=== PATIENT | female | born 1940 | race Caucasian/White ===

== ENCOUNTER 2017-08-14 12:09 | Day surgery (SDC) | payer OTHER ==
[2017-08-14] VITALS (9 sets, daily range): BP systolic 125–157; BP diastolic 84–116; PULSE 85–148; RESP 16–20; TEMP 98.3–98.6; O2SAT 94–99
[~2017-08-14] VITALS: Ht 160 cm; Wt 51.8 kg
[~2017-08-14 12:09] MED LIST: AMLO5TAB96 PO; LEVO50TA51 PO; METO10TA PO; MOXI400T4 PO; OMEP20CA5 PO; PHENYLEPH/NS 1000 MCG/10 ML SYR IV ONE; PROPOFOL 200 MG/20 ML AMP IV ONE; PROZ20CA11 PO
[2017-08-14] MEDS ORDERED: MUPIROCIN 2% OINT 1 APPLIC/GM SYR NASAL SCH (12:45)
[2017-08-14] MEDS ORDERED: CHLORHEXIDINE GLUCONATE 2 % 1 PACK (2 CLOTHS) TOPICAL SCH (12:45)
[2017-08-14] MEDS ORDERED: NS 1000 ML IV SCH (12:45)
[2017-08-14] MEDS ORDERED: ceFAZolin 2 GM PREMIX 50 ML IV SCH (12:45)
[2017-08-14] MEDS ORDERED: POVIDONE IODINE 5% (ANTISEPSIS KIT) 4 APPLICATIONS EACH NARE SCH (12:45)
[2017-08-14] MEDS ORDERED: CHLORHEXIDINE GLUCONATE 2 % 1 PACK (2 CLOTHS) TOPICAL PRN (13:00)
[2017-08-14] MEDS ORDERED: LACTATED RINGER'S 1000 ML IV PRN (13:00)
[2017-08-14] MEDS ORDERED: SODIUM CHLORID 0.9% 500 ML IV PRN (13:00)
[2017-08-14] MEDS ORDERED: POVIDONE IODINE 5% (ANTISEPSIS KIT) 4 APPLICATIONS EACH NARE PRN (13:00)
[2017-08-14] MEDS ORDERED: METOPROLOL TARTRATE 25 MG TAB PO PRN (13:00)
[2017-08-14 13:29] LABS: AUTOMATED NEUTROPHIL # 5.3 TH/MM3 (1.8-7.7); BASOPHIL % 0.2 % (0.0-2.0); EOSINOPHIL % 0.1 % (0.0-4.0); HEMATOCRIT 46.5 % (35.0-46.0); HEMOGLOBIN 15.8 GM/DL (11.6-15.3); LYMPH % 12.3 % (9.0-44.0); LYMPHOCYTE # 0.9 TH/MM3 (1.0-4.8); MEAN CELL VOLUME 93.1 FL (80.0-100.0); MEAN CORPUSCULAR HEMOGLOBIN 31.6 PG (27.0-34.0); MEAN PLATELET VOLUME 10.2 FL (7.0-11.0); MONO % 15.2 % (0.0-8.0); MONOCYTE # 1.1 TH/MM3 (0-0.9); NEUT % 72.2 % (16.0-70.0); PLATELET COUNT 175 TH/MM3 (150-450); RED CELL DISTRIBUTION WIDTH 14.6 % (11.6-17.2); WHITE BLOOD COUNT 7.3 TH/MM3 (4.0-11.0)
[2017-08-14] MEDS ORDERED: DANDELION ROOT PO (13:34)
[2017-08-14] MEDS ORDERED: WARF-23 PO (13:34)
[2017-08-14] MEDS ORDERED: TRIPLE LECITHIN PO (13:34)
[2017-08-14] MEDS ORDERED: DONE5TAB7 PO (13:34)
[2017-08-14] MEDS ORDERED: HYDR12.56 PO (13:34)
[2017-08-14] MEDS ORDERED: VITATAB43 PO (13:34)
[2017-08-14] MEDS ORDERED: BIOTCAP PO (13:34)
[2017-08-14] MEDS ORDERED: IBUP200C PO (13:34)
[2017-08-14] MEDS ORDERED: LEVO75TA3 PO (13:34)
[2017-08-14] MEDS ORDERED: MULTTAB67 PO (13:34)
[2017-08-14] MEDS ORDERED: METO25TA3 PO (13:34)
[2017-08-14] MEDS ORDERED: POTA2TAB PO (13:34)
[2017-08-14] MEDS ORDERED: FLUO20CA12 PO (13:34)
[2017-08-14] MEDS ORDERED: MAGN400T2 PO (13:34)
[2017-08-14] MEDS ORDERED: VITA150T PO (13:34)
[2017-08-14] MEDS ORDERED: ZINC50TA2 PO (13:34)
[2017-08-14] MEDS ORDERED: KELP PO (13:34)
[2017-08-14] MEDS ORDERED: ENAL5TAB PO (13:34)
[2017-08-14] MEDS ORDERED: VITA250T3 PO (13:34)
[2017-08-14] MEDS ORDERED: OMEGCAP PO (13:34)
[2017-08-14] MEDS ORDERED: FURO40TA PO (13:34)
[2017-08-14] MEDS ORDERED: CHRO1000 PO (13:34)
[2017-08-14] MEDS ORDERED: VITA200C3 PO (13:34)
[2017-08-14] MEDS ORDERED: CALC1TAB87 PO (13:34)
[2017-08-14 13:37] LABS: INTERNATIONAL NORMALIZED RATIO 1.5 RATIO; PROTHROMBIN TIME - PATIENT 14.8 SEC (9.8-11.6)
[2017-08-14 13:55] LABS: BICARBONATE 32.7 MEQ/L (21.0-32.0); CALCIUM 8.8 MG/DL (8.5-10.1); CREATININE 0.77 MG/DL (0.50-1.00)
[2017-08-14] MEDS ORDERED: POTASSIUM CHLOR 10 MEQ PREMIX 100 ML ONE (14:18)
[2017-08-14] MEDS ORDERED: VANCOMYCIN 1,000 MG/NS 250 ML IV ONE ×2 (14:30)
[2017-08-14] MEDS ORDERED: LIDOCAINE HCL 2% 50 ML VIAL ONE (14:31)
[2017-08-14] MEDS ORDERED: DO NOT ADM ANY ANTICOAGULANT DRUGS PRN (15:35)
[2017-08-14] MEDS ORDERED: traMADol HCL 50 MG TAB PO PRN (15:45)
[2017-08-14] MEDS ORDERED: ZOLPIDEM TARTRATE 5 MG TAB PO PRN (15:45)
--- NOTE | 2017-08-14 15:46 | CATHPROC ---
Flattr HIS Report Study Information Study Number Admission Scheduled Start Study Start [id number] Aug 14 2017 12:09PM 08/14/2017 Aug 14 2017 1:46PM [place] Service Cardiac Pacer/ICD Admit Source Facility Department Other [facility] - Programmer Developer Physician and Clinical Staff Initial Torsten Watkins Coat Fitter Mabel Gonzales RN Other Anesthesia, PREFABRICATED HOUSES TRIMMER Recorder Gillian Raymundo,RT(R) TECH2 Recorder Yakelin Monreal,ANYA Scrub Kenneth Giraldo,RT(R) Procedures Performed Procedure Location (Site) Vessel Name Lead Insertion Venogram Subclav. Vein (Lft Subclavian Vein Equipment Time Tile Classifier Description Size Mfg Part Number Used/Scraped DEFIBRILLATOR, INTICA 7 VR-T 15:06 BIOTRONIK VVE-VDDR [id number] Used DX 15:02 BIOTRONIK LEAD, PLEXA PRO-MRI DF 65/15 [id number] Used [id number] 14:43 MEDLINE INDUSTRIES SUTURE, STRIP PLUS 1/2" * Used *[id number] 14:43 MEDLINE PACER ADHESIVE, MASTISOL 2/3CC 2/3CC 0523-48 Used 14:43 MEDLINE PACER PATTERSON, LIMB * 2530 *[id number] Used [id number] 14:43 MEDLINE PACER PACK, PACER CUSTOM * Used *[id number] 14:43 MEDLINE PACER PEN, SKIN DUAL W/ RULER * Used *[id number] 15:01 Cerapedics PACER SAFE SHEATH, LONG, FR8, 25CM FR 8 [id number] Used 14:57 Needle Sponge Count 2 22 Used 14:56 Needle Sponge Count 20 200 Used 14:55 Needle Sponge Count 3 3 Used 14:58 NYCOMED OMNIPAQUE, 350 MG, 50ML 50ML [id number] Used [id number] *[id number] SUTURE, 3-0 VICRYL [SH] ([id number]) SUTURE, 3-0 VICRYL [SH] ([id number]) SUTURE, 4-0 MONOCRYL [PS2] (Y496G) [id number] 14:43 [employer] MEDICAL BL[employer]ET,WARM AIR CCL * Used *[id number] [facility] PAD, ELECTROSURGICAL 14:43 * [id number] *[id number] Used SURGICAL GROUNDING ORANGE [id number] 14:43 [employer] SHIRIN. / * Used *44780 Equipment Model, Serial, Lot Number and Expiration Data Description Model Number Serial Number Lot Number Expiration Date ELENO PASTOR-MRI DF 65/15 [id number] 07-10-2019 History: Allergies Allergy Reaction pentazocine History: Risk Factors Hypertension Dyslipidemia Yes Yes Labs Hgb (g/dl) Hct (%) RBC (MIL/MM3) WBC (l/cumm) Platelets (thousands) 11.60-17.00 35.00-51.00 4.00-5.90 4.00-11.00 150.00-450.00 15.0 46 5 7.3 175 Medication Medication Total Dose (Bolus/Oral) Medication Total Dosage/Unit 2% XYLOCAINE 50 mL Medications (Bolus/Oral) Medication Time Given Dosage/Unit Administered By Reason 2% XYLOCAINE 08/14/2017 2:55:29 PM 50 mL Torsten Mandujano 50 mL 2% XYLOCAINE given in lab by Torsten Mandujano in Left shoulder via Subcutaneous. Ordered by Torsten Mandujano. Medication (Drip) Medication Time Given Dosage/Unit Concentration/Unit Diluent (ml) Solution ANCEF 08/14/2017 2:30:44 PM 1 g 1 g ANCEF given in lab by Anesthesia, PREFABRICATED HOUSES TRIMMER via Peripheral IV. Ordered by Torsten Mandujano. Reason: As per physicians verbal order. POTASSIUM DRIP 08/14/2017 2:45:14 PM 10 meq/hr 10 meq 100 D5W .9 NaCl 10 meq/hr POTASSIUM DRIP given in lab by Anesthesia, PREFABRICATED HOUSES TRIMMER. Pump/Drip Flow = 100 ml/hr using D5W .9 Na Cl with a concentration of 10 meq in 100 ml. Ordered by Torsten Mandujano. Reason: As per physicians verbal order. for 3.2 k+, 1st of 4 doses t otal to be given. VANCOMYCIN DRIP 08/14/2017 2:30:43 PM 1 g 1 g VANCOMYCIN DRIP given in lab by Anesthesia, PREFABRICATED HOUSES TRIMMER via Peripheral IV. Ordered by Torsten Mandujano. Reas on: As per physicians verbal order. Initial Case Assessment Cardiovascular HR Rhythm NIBP 100 AF 13/80 Edema Present Skin color Skin None Normal Warm Dry Circulatory - Right Pulses Dorsalis Pedis 1 Scale (0,1,2,3,4,d) Circulatory - Left Pulses Dorsalis Pedis 1 Scale (0,1,2,3,4,d) Circulatory - Lower Extremities Color Lower Right Color Lower Left Normal Normal Neurological State Alert Moves all extremities Comment: baseline pleasantly confused Respiration - General Respiration Rate SpO2 (%) (B/min) 20 95 Final Case Assessment Cardiovascular HR NIBP 99 118/65 Edema Present Skin color Skin None Normal Warm Dry Circulatory - Right Pulses Dorsalis Pedis 1 Scale (0,1,2,3,4,d) Circulatory - Left Pulses Dorsalis Pedis 1 Scale (0,1,2,3,4,d) Circulatory - Lower Extremities Color Lower Right Color Lower Left Normal Normal Neurological State Unresponsive Comment: pt to go to PACU with PREFABRICATED HOUSES TRIMMER Respiration - General Respiration Rate SpO2 (%) (B/min) 16 92 Chronological Log Time Study Chronological Log 14:20:46 Patient arrived via Bed. 14:20:47 Patient Name, D.O.B, / Armband Verified By R.N. 14:20:48 Consent signed by the physician and the patient and verified by the Programmer Developer staff. 14:20:48 Pre-op and post- op instructions given; patient acknowledges understanding of instructions. 14:20:50 History and physical on the chart. 14:20:54 Patient has been NPO for More than 6Hrs. 14:21:48 Skin Breakdown- none per pt 14:22:09 Verbal Stimulation=2 Physical Stimulation=2 Airway=2 Respiration=2 TOTAL=8. (0=absent, 1=li mited, 2=present) 14:22:21 Anesthesia at bedside. Assumes care of patient. 14:22:50 Disposable Defibrillator Pads Placed On Patient. 14:22:55 Bovie ground pad applied to: right thigh. 14:23:00 A # 20 IV was noted in the Antecubital (left). Grade = 0 09.% NaCl at kvo 14:23:08 A # 20 IV was noted in the Antecubital (right). Grade = 0 0.9%NaCl at kvo 14:23:40 Patient Warmer Placed on the Table. 14:25:28 Delfina Prominences Protected 14:27:47 Table restraints applied according to hospital policy Assessment: Initial Case, ID=[id number] BPM, Rhythm=AF, NIBP=13/80 mmhg, Edema=None, Color=Normal, Ski n = Warm, Dry Right Pulses: William Ped=1 Left Pulses: William Ped=1 14:30:00 Lower Right Extremities: Color=Normal Lower Left Extremities: Color=Normal Neurological: State=Alert, DUGAN, Comment=baseline pleasantly confused Respiration: Resp=20 B/min, SpO2=95 % 1 g VANCOMYCIN DRIP given in lab by Anesthesia, PREFABRICATED HOUSES TRIMMER via Peripheral IV. Ordered by Torsten Mandujano . Reason: As per 14:30:43 physicians verbal order. 1 g ANCEF given in lab by Leonard, PREFABRICATED HOUSES TRIMMER via Peripheral IV. Ordered by Torsten Mandujano. Reason: As per physicians 14:30:44 verbal order. 14:40:15 2% CHLORHEXIDINE GLUCONATE WASH AND NASAL SWIPE DONE PRIOR TO PROCEDURE. 14:43:51 Bilateral Upper Chest Prepped Times Two. First Sponge And Instrument Count Done by Kenneth Giraldo, RT(R). 14:44:28 Hypo's: 3, Sponges: 20, Bovie/scratch: 2 Sutures: 6, Blades: 2, Instruments: 28, Syveck Patches: ~SYVECK PATCH~ verified by 10 meq/hr POTASSIUM DRIP given in lab by Anesthesia, PREFABRICATED HOUSES TRIMMER. Pump/Drip Flow = 100 ml/hr using D5W .9 NaCl with a 14:45:14 concentration of 10 meq in 100 ml. Ordered by Torsten Mandujano. Reason: As per physicians rebecca maloney order. for 3.2 k+, 1st of 4 doses total to be given. 14:47:18 MD paged 14:51:34 MD arrived. Time Out. Correct patient, procedure, procedure equipment, site and side verified with physicia n present. Time 14:55:00 concurred by MD, individual staff and PREFABRICATED HOUSES TRIMMER. Time Out #2 - Consents verified, patient in correct position, all results are labled and displa yed, safety precautions 14:55:02 taken, antibiotics administered. Time out concurred by MD, individual staff and PREFABRICATED HOUSES TRIMMER in procedu re 14:55:03 Case Start 14:55:29 50 mL 2% XYLOCAINE given in lab by Torsten Mandujano in Left shoulder via Subcutaneous. Ordered by Torsten Mandujano. 14:56:54 The Subclav. Vein (Lft was manually injected with 10 cc's of contrast. OMNIPAQUE, 350 MG, 5 0ML 50ML used. 14:58:21 Surgical Incision Made. 14:59:26 A pocket was created at the L Upper Chest. 15:00:17 Vascular access was obtained in the Subclav. Vein (Lft. A SAFE SHEATH, LONG, FR8, 25CM FR 8 was advanced into the Subclav. Vein (Lft using the Modified Seldinger 15:01:07 technique. 15:01:25 A LEAD, PLEXA PRO-MRI DF 65/15 was inserted and positioned in the RV. 15:04:09 The RV lead impedance and threshold being tested. 15:05:12 The RV lead was sutured to the fascia. 15:06:37 Dr. Webb in at bedside to review care and left 15:07:42 Holding Area notified of successful intervention. 15:08:15 A DEFIBRILLATOR, INTICA 7 VR-T DX VVE-VDDR was connected and placed in the pocket. 15:10:31 The pocket is being sutured closed now. 15:14:40 Implant Procedure was performed. 15:14:47 A ICD Implant . (Single) 15:14:56 CICU called. Spoke to Teagan. 15:14:57 Bedside Report will be given. 15:16:16 A two Joul DFT was performed. 15:16:33 The DFT was Success at 20 Joules, 61 Ohms lead impedance and 4 ms charge time. 15:16:47 Reference ECG taken Second Sponge And Instrument Count Done by Kenneth Giraldo RT(R). 15:18:26 Hypo's: 3, Sponges: 20, Bovie/scratch: 2 Sutures: 6, Blades: 2, Instruments: 28, Syveck Patches: ~SYVECK PATCH~ verified by HH 15:19:23 No case complications noted. 15:19:27 Cine recording checked. 15:22:31 Implantable Device card placed in patient's chart. Final Sponge And Instrument Count Done by Kenneth Giraldo RT(R). 15:27:29 Hypo's: 3, Sponges: 20, Bovie/scratch: 2 Sutures: 6, Blades: 2, Instruments: 28, Syveck Patches: ~SYVECK PATCH~ verified by MM 15:27:57 Case End 15:32:10 Steri-strips and a sterile dressing applied to site. 15:38:37 Defibrillator and ground pads removed. Skin intact. Assessment: Final Case, HR=99 BPM, ADZG=889/65 mmhg, Edema=None, Color=Normal, Skin = Warm, Dr y Right Pulses: William Ped=1 Left Pulses: William Ped=1 15:38:56 Lower Right Extremities: Color=Normal Lower Left Extremities: Color=Normal Neurological: State=Unresponsive, Comment=pt to go to PACU with PREFABRICATED HOUSES TRIMMER Respiration: Resp=16 B/min, SpO2=92 % 15:39:05 Called PACU to make aware of pt coming to them. 15:40:02 notified CICU of pt going to PACU first. 15:42:40 Pt breathing independently but no arousing. Patient moved to stretcher and transported to PACU with PREFABRICATED HOUSES TRIMMER. End Study - Contrast Media Used In Study Contrast Total Opened (mL) Total Used (mL) Total Wasted (mL) Omnipaque 50 10 40 End Study - Radiation Exposure Fluoro Time (minutes) 1.8 End Study - Patient Disposition Complications Transferred To Interventional Outcome No Telemetry Bed successful
--- NOTE | 2017-08-14 16:28 | RADRPT ---
EXAM DATE/TIME: 08/14/2017 16:01 [place] COMPARISON: No previous studies available for comparison. INDICATIONS : Post pacemaker MEDICAL HISTORY : none known SURGICAL HISTORY : none known ENCOUNTER: Initial ACUITY: 1 day PAIN SCORE: 0/10 LOCATION: Bilateral chest FINDINGS: The heart is enlarged. Left subclavian AICD has its tip in the right ventricle. No pneumothorax is no jackie. Mild central pulmonary vascular congestion is noted. Degenerative changes and scoliosis of the t horacic spine are noted. CONCLUSION: 1. Cardiomegaly. 2. Mild central pulmonary vascular congestion. 3. No pneumothorax status post placement of left subclavian AICD which has its tip in the right ventr icle. Ceferino Abernathy MD on August 14, 2017 at 16:25 Board Certified Radiologist. This report was verified electronically.
[2017-08-14] MEDS ORDERED: WARFARIN SOD 5 MG TAB PO SCH (16:40)
[2017-08-14] MEDS ORDERED: METOPROLOL TARTRATE 25 MG TAB PO SCH (21:00)
[2017-08-14] MEDS ORDERED: DONEPEZIL HCL 5 MG TAB PO SCH (21:00)
[2017-08-14] MEDS: ENALAPRIL MALEATE 5 MG TAB PO SCH (21:08)
[2017-08-14] MEDS ORDERED: DILTIAZEM HCL 25 MG/5 ML (Bolus) IV PUSH PRN (22:15)
[2017-08-14] MEDS ORDERED: DILTIAZEM 125 MG/NS 100 ML IV PRN ×2 (22:30)
--- NOTE | 2017-08-14 23:13 | MP ---
cc: [facility] DATE OF SURGERY 08/14/17 PROCEDURE Single-chamber AICD implantation via the left subclavian vein. INDICATIONS Severe non-ischemic cardiomyopathy. OPERATIVE NOTE The patient was brought to the operating suite in a fasting state after having signed informed consent. The left upper chest was prepped and draped as per policy and anesthetized with 1% lidocaine. After administration of contrast through a left arm peripheral IV, a transverse incision was made inferior to the left clavicle and, using blunt dissection, a subcutaneous pocket was formed down to the pectoralis fascia. Using modified Seldinger technique, central venous access was obtained via the left subclavian vein and an 8-Cambodian sheath placed. Through this sheath, a ventricular active fixation lead was introduced and its tip positioned in the right ventricular apex where good current of injury, stimulation threshold (0.8 volts) and sensitivity (12.1 mV) were demonstrated. This lead was secured into place using 2-0 silk ties down to the pectoralis fascia. The lead also has atrial sensing capability and a P-wave was measured at 2.2 mV. The leads were then connected to the AICD generator which is a Biotronik Intica device. The leads and the generator were placed back into the subcutaneous pocket which was partially closed using 3-0 Vicryl interrupted stitches in a single layer to close the deepest subcutaneous tissue. Testing of the device was then performed. Ventricular fibrillation was induced. The patient was successfully rescued with a 20 joule shock after a charge time of 4.1 seconds at a shock impedance of 61 ohms. The pocket was further closed using another layer of 3-0 Vicryl interrupted stitches and then 4-0 Monocryl running stitch to close the subcuticular tissue. Overlapping Steri-Strips and a dressing were then applied. There were no apparent immediate complications. A portable chest x-ray is pending at the time of this dictation. CONCLUSION 1. Status post successful implantation of a single chamber AICD (with atrial sensing capability) using a Biotronik Intica AICD generator. 2. Status post AICD defibrillation threshold testing. MD JV Goins/ /3:18 PM /10:40 PM MTDAndreea
[2017-08-15] VITALS (12 sets, daily range): BP systolic 129–130; BP diastolic 73–74; PULSE 78–94; RESP 16–20; TEMP 98.4–98.6; O2SAT 92–99
[2017-08-15] MEDS ORDERED: VANCOMYCIN INJ 1,000 MG in SODIUM CHLOR 0.9% 250 ML INJ 250 ML IV ONE (04:00)
[2017-08-15] MEDS ORDERED: LEVOTHYROXINE SODIUM 75 MCG TAB PO SCH (06:00)
--- NOTE | 2017-08-15 08:00 | PD.CARD.PN ---
Subjective Subjective Remarks Denies pain, dyspnea, palpitations, dizziness. Objective Medications Item Value Date Time Furosemide 40 mg 08/15/17 0900 (Lasix) DAILY/PO Hydrochlorothiazide 12.5 mg 08/15/17 0900 (Microzide) DAILY/PO Magnesium Oxide 400 mg 08/15/17 0900 (Mag-Ox) DAILY/PO Diltiazem HCl 125 125 ml @ 5 mls/hr 08/14/17 2230 mg/Sodium Chloride TITRATE PRN/IV 08/14/172228 Enalapril Maleate 5 mg 08/14/17 2100 (Vasotec) BID/PO 08/14/172107 Metoprolol 25 mg 08/14/17 2100 Tartrate BID/PO 08/14/17 210 (Lopressor) Warfarin Sodium 5 mg 08/14/17 1640 (Coumadin) DAILY@1600/PO Current Medications Medications (Trade) Dose Ordered Sig/Jax Route Start Time Stop Time Status Last Admin Sodium Chloride 1,000 ml @ 30 mls/hr Q24H IV 08/14/17 12:45 (Ambien) 5 mg HS PRN PO 08/14/17 15:45 (Ultram) 50 mg Q6HR PRN PO 08/14/17 15:45 (Aricept) 5 mg HS PO 08/14/17 21:00 08/14/17 21:08 (Vasotec) 5 mg BID PO 08/14/17 21:00 08/14/17 21:08 (PROzac) 20 mg DAILY PO 08/15/17 09:00 (Lasix) 40 mg DAILY PO 08/15/17 09:00 (Microzide) 12.5 mg DAILY PO 08/15/17 09:00 (Synthroid) 75 mcg DAILY@0600 PO 08/15/17 06:00 08/15/17 05:41 (Mag-Ox) 400 mg DAILY PO 08/15/17 09:00 (Lopressor) 25 mg BID PO 08/14/17 21:00 08/14/17 21:08 (Coumadin) 5 mg DAILY@1600 PO 08/14/17 16:40 Miscellaneous Information ALL NURSING DEPARTME... UNSCH PRN .XX 08/14/17 15:35 08/15/17 15:34 (Cardizem Inj) 15 mg BOLUS PRN IV PUSH 08/14/17 22:15 08/15/17 22:14 08/14/17 22:27 Diltiazem HCl 125 mg/Sodium Chloride 125 ml @ 5 mls/hr TITRATE PRN IV 08/14/17 22:30 08/14/17 22:29 Vital Signs / I&O Vital Signs Date Time Temp Pulse Resp B/P (MAP) Pulse Ox O2 Delivery O2 Flow Rate FiO2 08/15/17 06:00 78 08/15/17 05:00 78 08/15/17 04:00 78 08/15/17 04:00 98.6 82 16 130/73 (92) 99 08/15/17 03:00 82 08/15/17 02:00 82 08/15/17 01:00 78 08/15/17 00:00 92 08/14/17 23:00 85 08/14/17 23:00 98.4 96 18 125/84 (98) 99 08/14/17 22:29 121 148/99 08/14/17 22:10 144 18 151/101 (118) 94 08/14/17 22:00 148 08/14/17 21:00 134 08/14/17 20:00 98.4 114 20 157/116 (130) 99 08/14/17 20:00 126 08/14/17 19:00 93 08/14/17 18:00 108 08/14/17 17:00 96 08/14/17 17:00 98.3 87 16 135/91 (106) 99 08/14/17 16:39 88 20 132/81 (98) 96 Nasal Cannula 2 08/14/17 16:30 98.6 105 21 136/86 (103) 97 Nasal Cannula 2 08/14/17 16:15 90 20 127/79 (95) 99 Nasal Cannula 2 08/14/17 16:00 99 22 128/85 (99) 92 Nasal Cannula 2 08/14/17 15:52 97.7 133 20 141/80 (100) 93 Nasal Cannula 2 08/14/17 13:01 98.6 133 18 138/88 (105) 96 I/O 08/14/17 08/14/17 08/14/17 08/15/17 08/15/17 08/15/17 07:00 15:00 23:00 07:00 15:00 23:00 Intake Total 240 ml 240 ml Output Total 341 ml Balance 240 ml -101 ml Intake Oral 240 ml 240 ml IV Total 0 ml Output Urine Total 340 ml Stool Total 1 ml Physical Exam GENERAL: Well developed, well nourished. No acute distress. HEENT: Jugular venous pressure is normal. CHEST: Lungs clear to auscultation anteriorly. ICD site clean, dry, intact, no hematoma or tenderness. CARDIAC: Irregular rate and rhythm without S3, S4, or murmur. ABDOMEN: Soft, nontender, no hepatosplenomegaly. Bowel sounds present. EXTREMITIES: No clubbing, cyanosis, or edema. Laboratory Laboratory Tests Test 08/14/17 12:50 White Blood Count 7.3 TH/MM3 Red Blood Count 5.00 MIL/MM3 Hemoglobin 15.8 GM/DL Hematocrit 46.5 % Mean Corpuscular Volume 93.1 FL Mean Corpuscular Hemoglobin 31.6 PG Mean Corpuscular Hemoglobin Concent 34.0 % Red Cell Distribution Width 14.6 % Platelet Count 175 TH/MM3 Mean Platelet Volume 10.2 FL Neutrophils (%) (Auto) 72.2 % Lymphocytes (%) (Auto) 12.3 % Monocytes (%) (Auto) 15.2 % Eosinophils (%) (Auto) 0.1 % Basophils (%) (Auto) 0.2 % Neutrophils # (Auto) 5.3 TH/MM3 Lymphocytes # (Auto) 0.9 TH/MM3 Monocytes # (Auto) 1.1 TH/MM3 Eosinophils # (Auto) 0.0 TH/MM3 Basophils # (Auto) 0.0 TH/MM3 CBC Comment DIFF FINAL Differential Comment Prothrombin Time 14.8 SEC Prothromb Time International Ratio 1.5 RATIO Activated Partial Thromboplast Time 30.3 SEC Blood Urea Nitrogen 19 MG/DL Creatinine 0.77 MG/DL Random Glucose 90 MG/DL Calcium Level 8.8 MG/DL Sodium Level 138 MEQ/L Potassium Level 3.2 MEQ/L Chloride Level 97 MEQ/L Carbon Dioxide Level 32.7 MEQ/L Anion Gap 8 MEQ/L Estimat Glomerular Filtration Rate 73 ML/MIN Imaging Last 24 hours Impressions Chest X-Ray 08/14/17 1541 Signed Impressions: Service Date/Time: August 16:01 - CONCLUSION: 1. Cardiomegaly. 2. Mild central pulmonary vascular congestion. 3. No pneumothorax status post placement of left subclavian AICD which has its tip in the right ventricle. Ceferino Abernathy MD Assessment and Plan Problem List: (1) S/P implantation of automatic cardioverter/defibrillator (AICD) ICD Codes: Z95.810 - Presence of automatic (implantable) cardiac defibrillator Status: Acute Plan: ICD site OK. Post op CXR without PNTX. ICD re-interrogation pending. PLAN await recheck of ICD by rep, discharge if OK, one week f/u for wound and ICD recheck, same home medications except increase metoprolol and add Levaquin x 5d (2) Non-ischemic cardiomyopathy ICD Codes: I42.8 - Other cardiomyopathies Status: Chronic Plan: Overall compensated. No overt CHF. To increase beta malia dosing. Continue TREVER-I. (3) Paroxysmal atrial fibrillation ICD Codes: I48.0 - Paroxysmal atrial fibrillation Status: Acute Plan: Transient increase in HR last night, now normal on IV Cardizem. Will stop Cardizem, increase beta malia dosing. Continue warfarin, was resumed yesterday. Code Status full code Discussed Condition With patient and yesterday Torsten Mandujano MD Aug 15, 2017 08:00
[2017-08-15] MEDS ORDERED: LEVA500T33 PO (08:05)
[2017-08-15] MEDS ORDERED: METO25TA3 PO (08:05)
[2017-08-15] MEDS ORDERED: MAGNESIUM OXIDE 400 MG TAB PO SCH (09:00)
[2017-08-15] MEDS ORDERED: HYDROCHLOROTHIAZIDE 12.5 MG CAP PO SCH (09:00)
[2017-08-15] MEDS ORDERED: FLUoxetine HCL 20 MG CAP PO SCH (09:00)
[2017-08-15] MEDS ORDERED: FUROSEMIDE 40 MG TAB PO SCH (09:00)
[2017-08-15] MEDS ORDERED: METOPROLOL TARTRATE 50 MG TAB PO SCH (09:00)
[2017-08-15] MEDS: ENALAPRIL MALEATE 5 MG TAB PO SCH (09:28)
--- NOTE | 2017-08-15 23:14 | EKG ---
Date Performed: 08/14/2017 Time Performed: 13:03:44 PTAGE: 77 years EKG: Atrial fibrillation with rapid ventricular response. Cannot rule out septal infarct - age u ndetermined Possible left ventricular hypertrophy Inferior/lateral ST-T changes are probably due to v entricular hypertrophy Abnormal ECG NO PREVIOUS TRACING DOCTOR: Boston Huffman Interpretating Date/Time 08/15/2017 23:12:47
== END 2017-08-15 11:35 | disposition home or self-care (01) ==
LOC: HDOC 12:09 → HDIC 12:10 → HCIS 16:44 → HDOC 08-15 11:35
PROVIDERS: ATTEND Internal Medicine Cardiovascular Disease
DX: I42.0 Dilated cardiomyopathy (principal); I48.0 Paroxysmal atrial fibrillation; Z79.01 Long term (current) use of anticoagulants; E78.5 Hyperlipidemia, unspecified; I10 Essential (primary) hypertension; R60.9 Edema, unspecified; R06.02 Shortness of breath; F41.8 Other specified anxiety disorders
CPT/HCPCS: 00530; 33249; 71045; 80048; 85025; 85610; 85730; 93005; 93641; C1722; C1777; J0690; J2370; J3010; J3370; J3480; J7050